=== PATIENT | male | born 1980 | race Caucasian/White ===

== ENCOUNTER 2016-07-09 18:15 | Emergency (ER) | payer SELFPAY ==
[~2016-07-09] VITALS: Ht 165.1 cm; Wt 56.5 kg
[2016-07-09 18:18] VITALS: BP 134/74; PULSE 78; RESP 15; TEMP 98.3; O2SAT 99
[2016-07-09] MEDS ORDERED: PENI500T PO (19:26)
[2016-07-09] MEDS ORDERED: IBUP800T23 PO (19:26)
[2016-07-09] MEDS ORDERED: MAGICADU2 SWISH-SPIT (19:26)
--- NOTE | 2016-07-09 19:27 | PD ---
HPI Chief Complaint: Oral / Dental Pain or Problem Time Seen by Provider: 19:20 Travel History International Travel<30 days: No Contact w/Intl Traveler<30days: No Traveled to known affect area: No History of Present Illness HPI 36-year-old male presents for evaluation of dental pain. Symptoms started 3 days ago. The pain is a throbbing pain that is constant and localized to the left maxillary premolars. Pain is worse with chewing. He has had problems with his teeth in the past and he actually has an appointment in 4 days with a dentist to discuss treatment options including having all of his teeth extracted. No fevers or chills. No dental trauma. No other complaints. PFSH Past Medical History Medical History: Denies Significant Hx Asthma: Yes (childhood) Influenza Vaccination: No Past Surgical History Surgical History: No Previous Surgery Social History Alcohol Use: Yes (occasionally) Tobacco Use: No Substance Use: No Allergies-Medications (Allergen,Severity, Reaction): Coded Allergies: No Known Allergies (Unverified , 07/09/16) Reported Meds & Prescriptions Reported Meds & Active Scripts Active Ibuprofen 800 Mg Tab 800 Mg PO Q6HR PRN Magic Mouthwash Adult Liq (Multi-Ingredient Mouthwash/Gargle) 120 Ml Susp 10 Ml SWISH-SPIT ACHS Each 5mL contains: Nystatin 200,000units, Diphenhydramine 4.25mg, Viscous Lidocaine 10mg, Blount syrup 0.8 mL Penicillin V Potassium 500 Mg Tab 500 Mg PO Q8H 10 Days Review of Systems General / Constitutional: No: Fever, Chills HENT: Positive: Dental Difficulties Physical Exam Narrative GENERAL: Well-developed well-nourished male in no acute distress SKIN: Warm and dry. HEAD: Atraumatic. Normocephalic. EYES: Pupils equal and round. No scleral icterus. No injection or drainage. ENT: No nasal bleeding or discharge. Mucous membranes pink and moist. The patient has multiple areas of dental decay and most of his teeth. There is tenderness to palpation left maxillary premolars which are quite decayed. NECK: Trachea midline. No JVD. No lymphadenopathy, no submandibular edema Data Data Last Documented VS Vital Signs Date Time Temp Pulse Resp B/P Pulse Ox O2 Delivery O2 Flow Rate FiO2 07/09/16 18:18 98.3 78 15 134/74 99 MDM Medical Decision Making Medical Screen Exam Complete: Yes Emergency Medical Condition: Yes Medical Record Reviewed: Yes Differential Diagnosis Dental caries, pulpitis, pericoronitis, periodontal abscess Narrative Course The patient has dental caries. He is being discharged with penicillin, ibuprofen and Magic mouthwash, outpatient follow-up in 4 days with dentist as scheduled. Diagnosis Primary Impression: Dental caries Additional Instructions: Medication as prescribed. Follow-up with dentist as scheduled. Return for any emergent medical conditions. Med/Other Pt SpecificInfo: Prescription(s) given Scripts Ibuprofen 800 Mg [id number] Mg PO Q6HR PRN (PAIN) #40 TAB Ref 0 Prov:Be Dennis MD 07/09/16 Nsjzkrxp-Wzbyehvbmkvnutz-Lhqnplmzw Liq (Magic Mouthwash Adult Liq)120 Ml Susp10 Ml SWISH-SPIT ACHS #120 ML Ref 1 Each 5mL contains: Nystatin 200,000units, Diphenhydramine 4.25mg, Viscous Lidocaine 10mg, Blount syrup 0.8 mL Prov:Be Dennis MD 07/09/16 Penicillin V Potassium 500 Mg [id number] Mg PO Q8H 10 Days Ref 0 Prov:Be Dennis MD 07/09/16 Disposition: 01 DISCHARGE HOME Condition: Stable Armand Jones Jul 09, 2016 19:27
== END 2016-07-09 19:39 | disposition home or self-care (01) ==
LOC: NEPD 18:15
DX: K02.9 Dental caries, unspecified (principal)
CPT/HCPCS: 99282